=== PATIENT | male | born 1960 | race Caucasian/White ===

== ENCOUNTER 2018-08-05 12:22 | Outpatient (CLI) | payer BC ==
[2018-08-05 14:41] LABS: Hemoglobin 16.5 g/dL (14.0-18.0); Mean Corpuscular HGB CONC 33.3 g/dL (32.0-36.0); Mean Corpuscular Hemoglobin 32.3 pg (27.0-31.0); Mean Corpuscular Volume 96.9 fL (78.0-98.0); Mean Platelet Volume 7.6 fL (7.4-10.4); Platelet Count 196 thou/uL (130-400); RBC Distribution Width 12.2 % (11.5-14.5); Red Blood Cell (RBC) Count 5.12 mill/uL (4.70-6.10); White Blood Cell (WBC) Count 5.6 thou/uL (4.8-10.8)
[2018-08-05 14:47] LABS: PTT 27.6 SEC (22.9-36.1)
[2018-08-05 14:51] LABS: Bilirubin Negative (Negative); Blood, Urine Negative (Negative); Clarity CLEAR (Clear); Glucose, Urine (Dipstick) Negative (Negative); Leukocyte Negative (Negative); Nitrite Negative (Negative); Protein, Urine (Dipstick) Negative (Neg-Trace); Specific Gravity, Urine 1.014 (1.002-1.036); Urobilinogen 0.2 mg/dL (0.2-1.0); pH, Urine 5.5 (5.0-9.0)
[2018-08-05 14:54] LABS: Bacteria/HPF None Seen HPF (None Seen); Hyaline Casts/LPF 0-3 HYALINE CAST LPF (0-3 Hyaline); Pathc Cast-AUWi Flag 0.14 (0-2.49); RBC/HPF 0-3 HPF (0-3); Squamous Epithelial None Seen HPF (0-3); WBC/HPF None Seen HPF (0-3)
[2018-08-05 15:11] LABS: Anion Gap 14 mmol/L (10-20); BUN (Urea Nitrogen) 10 mg/dL (8.4-25.7); Calc. Creatinine Clearance 0 mL/min (70-130); Calcium 9.5 mg/dL (7.8-10.44); Carbon Dioxide 23 mmol/L (22-29); Chloride 107 mmol/L (98-107); Estimated GFR-MDRD 83; Glucose 79 mg/dL (70-105); Potassium 4.2 mmol/L (3.5-5.1); Sodium 140 mmol/L (136-145)
== END 2018-08-05 12:23 | disposition home or self-care (01) ==
LOC: LABBT 12:22
PROVIDERS: ATTEND Urology
DX: Z01.818 Encounter for other preprocedural examination (principal); N40.1 Benign prostatic hyperplasia with lower urinary tract symptoms; R97.20 Elevated prostate specific antigen [PSA]; R35.1 Nocturia; Z87.440 Personal history of urinary (tract) infections
CPT/HCPCS: 80048; 81001; 85027; 85610; 85730; 87086; 93005; 93010

== ENCOUNTER 2018-08-18 05:59 | Day surgery (SDC) | payer BC ==
[2018-08-05 12:45] VITALS: BMI 28.5
[2018-08-18] MEDS ORDERED: Levofloxacin 500 mg/D5W 100 ml Premix Bag ONE (06:19)
[2018-08-18] MEDS ORDERED: cefTRIAXone\\ROCEPHIN 2 GM VIAL ONE (06:19)
[2018-08-18] MEDS ORDERED: Sodium Chloride 0.9% 100 ML ONE (06:19)
[2018-08-18] MEDS ORDERED: Fentanyl 100 MCG/2 ML VIAL ONE ×3 (06:29→08:20)
[2018-08-18] MEDS ORDERED: Iothalamate Meglumine 60% 50 ML VIAL FS ONE (06:55)
[2018-08-18] MEDS ORDERED: Midazolam HCl 2 mg/2 ml Vial ONE (07:11)
[2018-08-18] MEDS ORDERED: Phenazopyridine HCl 97.5 MG TABLET ONE (08:21)
[2018-08-18] MEDS ORDERED: Dexamethasone 20 MG/5 ML VIAL ONE (10:54)
[2018-08-18] MEDS ORDERED: Lidocaine 1% PF 5 ML VIAL ONE (10:54)
[2018-08-18] MEDS ORDERED: diphenhydrAMINE 50 MG/ML VIAL ONE (10:54)
[2018-08-18] MEDS ORDERED: PROPOFOL 200 MG/20 ML VIAL ONE (10:54)
[2018-08-18] MEDS ORDERED: Ondansetron PF 4 MG/2 ML Vial ONE (10:54)
--- NOTE | 2018-08-18 13:55 | OP ---
DATE OF PROCEDURE: 08/18/2018 PRIMARY CARE PHYSICIAN: Dr. Chance. PREOPERATIVE DIAGNOSES: 1. A 58-year-old male with elevated PSA of 5.5, unremarkable JAROD. 2. Remote history of urinary tract infection. POSTOPERATIVE DIAGNOSES: 1. A 58-year-old male with elevated PSA of 5.5, unremarkable JAROD. 2. Remote history of urinary tract infection. PROCEDURES PERFORMED: Flexible cystoscopy, transrectal ultrasound, 12 core needle biopsy of the prostate. ANESTHESIA: TIVA. COMPLICATIONS: None apparent. DISPOSITION: To recovery room in stable condition. EBL: Minimal. INTRAOPERATIVE FINDINGS: Cystoscopy negative for stricture, coap lateral lobes with no significant outlet obstruction, micro granulomatous reaction of the prostatic urethra, no evidence of intravesical median lobe, ureteral orifice is approximately 5 mm from the bladder neck. Transrectal ultrasound measurement; volume 26.4 g with 5.3, height 2.9, length 3.2. INDICATIONS FOR PROCEDURE AND HISTORY: Mr. Kaur is a pleasant 58-year-old male, who was referred to de for elevated PSA of 5.5. He was advised regarding prostate biopsy, flexible cystoscopy for staging as he has a remote history of having a UTI in the past. This was in the remote past; however, warrants cystoscopy to rule out occult pathology. He desired to proceed. As he has a history of vasovagal episodes just with blood draws, I informed the patient that it would be safer to proceed with TIVA anesthesia. He desired to proceed. Risks and complications including, but not limited to, bleeding, pain, infection, urosepsis, chronic pain, clot retention, anemia, and possible secondary procedure was reviewed with him in detail. Questions encouraged and answered. He desired to proceed. DESCRIPTION OF PROCEDURE: After an informed consent was signed, the patient was taken to the operating room, placed in a supine position. Broad-spectrum antibiotics were provided. His genital area was formally prepped and draped and we proceeded to perform a flexible cystoscopy. This demonstrated normal anterior posterior urethra. There was no evidence of urethral stricture. Coapting kissing lobes were noted; however, no significant outlet obstruction. There was a tiny micro calcified granulomatous reaction of his prostatic urethra; however, no gross evidence of prostatic stones. The bladder was entered, which demonstrated no evidence of intravesical median lobe. The ureteral orifices were normal and in orthotopic position approximately 5 mm from the bladder neck. Bladder was grossly unremarkable. At this time, the bladder was completely emptied with a 16-Kosovan catheter and removed. We placed the patient in a lateral decubitus position. Pressure points padded and protected. A transrectal ultrasound probe was placed. Digital rectal exam demonstrated no evidence of nodularity, asymmetry, or nodules of concern. We first took measurements with the prostate measuring with a 5.3, height of 2.94, and length of 3.2 cm. Volume estimated to be 26.4 g. At this time, using biopsy needle, 12 standard needle biopsies of the prostate, which he tolerated uneventfully. He was discharged for ciprofloxacin to be completed tomorrow 1 p.o. b.i.d. and MATTHEW p.r.n. Will follow up with me on September 07 to review pathology. Job ID: [id number] PAULY
== END 2018-08-18 09:42 | disposition home or self-care (01) ==
LOC: SDC 05:59
PROVIDERS: ATTEND Urology
PROC: 0TJB8ZZ Inspection of Bladder, Via Natural or Artificial Opening Endoscopic (ICD-10-PCS; principal; 2018-08-18)
PROC: 0VB03ZX Excision of Prostate, Percutaneous Approach, Diagnostic (ICD-10-PCS; principal; 2018-08-18)
DX: N40.1 Benign prostatic hyperplasia with lower urinary tract symptoms (principal); C61 Malignant neoplasm of prostate; R35.1 Nocturia; R97.20 Elevated prostate specific antigen [PSA]; Z79.899 Other long term (current) drug therapy
CPT/HCPCS: 88305; 88341; 88342; J0696; J1100; J1200; J1956; J2001; J2250; J2405; J2704; J3010; J7050; Q9961

== ENCOUNTER 2018-10-06 12:55 | Outpatient (CLI) | payer BC ==
--- NOTE | 2018-10-06 15:22 | MRI ---
MRI OF THE PELVIS AND PROSTATE WITHOUT AND WITH CONTRAST: HISTORY: Prostate cancer from prostate biopsy in August of 2018. TECHNIQUE: Multiplanar, multisequence MR images were obtained of the prostate without and with IV contrast. FINDINGS: An air bubble was seen in the patient's rectum which produces susceptibility artifact slightly limiti ng the diffusion sequence and ADC map. No low signal is seen on the ADC map and no restricted diffus ion is appreciated within the prostate. No low T2 signal abnormality is seen within the central gland or peripheral zone of the prostate. Th ere is mild hypertrophy of the central gland consistent with BPH. The seminal vesicles appear intact. The neurovascular bundles are unremarkable. No pelvic adenopath y is seen. Scattered diverticula are seen in the colon. No marrow signal abnormality is present. IMPRESSION: 1. PIRADS category 2 - low likelihood that a clinically significant cancer is present. 2. Diverticulosis. POS: ALEXI
== END 2018-10-06 12:56 | disposition home or self-care (01) ==
LOC: TBSIIMAG 12:55
PROVIDERS: ATTEND Urology
DX: C61 Malignant neoplasm of prostate (principal)
CPT/HCPCS: 72197